=== PATIENT | female | born 1965 | race Caucasian/White ===

== ENCOUNTER 2016-05-08 07:02 | Emergency (ER) | payer OTHER ==
--- NOTE | 2016-05-08 07:44 | RAD ---
INDICATION: Right foot injury COMPARISON: None TECHNIQUE: AP, lateral, and oblique views were obtained. FINDINGS: There is no acute fracture. 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 There is a plantar calcaneal spur. There is lateral ankle swelling. IMPRESSION: NO ACUTE FRACTURE.
--- NOTE | 2016-05-08 07:44 | RAD ---
INDICATION: Right ankle injury COMPARISON: None TECHNIQUE: AP, lateral, and oblique views were obtained. FINDINGS: There is no acute fracture or dislocation. There is prominent lateral soft tissue swelling. Incidental note is made of heel spurs. IMPRESSION: NO ACUTE FRACTURE. LATERAL SOFT TISSUE SWELLING.
[2016-05-08 08:29] VITALS: BP 171/92
--- NOTE | 2016-05-08 08:30 | UC ---
Herlinda Rivera Matthew, [facility] MD on 05/08/16 at 0806 . Lower Extremity/Ankle HPI - HPI Summary HPI Summary: Nurse's Note: pt states 2-3 months she has had right ankle pain - pt denies any initial injury, though states she's been caring for her brother who is in a wheelchair, and when she wheels him up a ramp she's "tweaked" her ankle a few times. pt states it's getting progressively more swollen, and pain is not going away. Note: Temp 99.2, BP 163/93, Pulse Ox 98%, 3/10 in the right ankle with laterally and moderate bilateral ankle swelling, no alcohol, non-smoker, PMHx HTN, plantar fasciitis, and knee discomfort In Room Note: A 50 y/o female presents to [facility] with lateral right ankle pain for the past 2-3 months and 2 weeks ago she injuries her ankle again wheeling her brother up a ramp. Associated symptoms include swelling for the past 2 months, which is worse on the right as compared to the left. The patient has been ambulating with a limp for over a month. She denies any recent illness. Hx of sleep apnea and diverticulitis. The patient has a Hx of diverticulitis and was hospitalized multiple time. FHx of brain tumor and gout (father). - History of Current Complaint Chief Complaint: UCLowerExtremity Stated Complaint: ANKLE COMPLAINT Time Seen by Provider: 05/08/16 07:12 Hx Obtained From: Patient Hx Last Menstrual Period: 03/14/2009 ?: No Onset/Duration: Gradual Onset, Lasting Weeks, Still Present Severity Initially: Mild Severity Currently: Mild Pain Intensity: 3 Pain Scale Used: 0-10 Numeric - Allergies/Home Medications Allergies/Adverse Reactions: Allergies Allergy/AdvReac Type Severity Reaction Status Date / Time Ketamine Allergy Hives Verified 05/08/16 07:17 Lisinopril Allergy Swelling Verified 05/08/16 07:17 Of Face,Lips,& Throat Home Medications: Home Medications Omeprazole CAP* [Prilosec CAP* 20 MG] 20 mg PO DAILY PRN 05/08/16 [History Confirmed 05/08/16] PMH/Surg Hx/FS Hx/Imm Hx Endocrine History Of: Denies: Diabetes Cardiovascular History Of: Reports: Hypertension Denies: Pacemaker/ICD Respiratory History Of: Reports: Asthma GI/ History Of: Denies: Renal Disease - Surgical History Surgical History: Yes Surgery Procedure, Year, and Place: C SECTION X 4; TONSILECTOMY - Family History Family History: FHx of brain tumors and gout (father) - Social History Alcohol Use: None Substance Use Type: None Smoking Status (MU): Never Smoked Tobacco Review of Systems Constitutional: Negative Skin: Negative Eyes: Negative ENT: Negative Respiratory: Negative Cardiovascular: Negative Gastrointestinal: Negative Genitourinary: Negative Motor: Negative Neurovascular: Negative Musculoskeletal: Arthralgia - Right Ankle, Edema - Bilateral ankle swelling worse on the right as compared to the left Neurological: Negative Psychological: Negative All Other Systems Reviewed And Are Negative: Yes Physical Exam Triage Information Reviewed: Yes Appearance: Well-Appearing, No Pain Distress, Well-Nourished Vital Signs: Initial Vital Signs Temp 99.2 F 05/08/16 07:05 Pulse 80 05/08/16 07:05 Resp 16 05/08/16 07:05 BP 163/93 05/08/16 07:05 Pulse Ox 98 05/08/16 07:05 Vital Signs Reviewed: Yes Eyes: Positive: Conjunctiva Clear ENT: Positive: Hearing grossly normal, Pharynx normal, TMs normal Neck: Positive: Supple, Nontender Respiratory: Positive: Chest non-tender, Lungs clear, Normal breath sounds, No respiratory distress, No accessory muscle use Cardiovascular: Positive: RRR, No Murmur Musculoskeletal: Positive: Other: - MILD LATERAL SOFT TISSUE SWELLING OF THE LEFT ANKLE; Right knee no instability; RIGHT ANKLE: SWOLLEN BILATERALLY, LATERAL ASPECT IS MORE SWOLLEN THE MEDIAL ASPECT; Negative anterior drawer;; Achilles tendon intact; No tenderness over the base of the 5th metatarsal; No medial tenderness of the right ankle; No redness or inflammation; Calf muscle non tender bilaterally; TENDERNESS WITH INVERSION OF THE RIGHT FOOT Neurological: Positive: Muscle Tone Normal Psychological: Positive: Age Appropriate Behavior Skin Exam: Normal Skin: Negative: rashes Diagnostics - Radiology RT Ankle XR Xray Interpretation: No Acute Changes - IMPRESSION: NO ACUTE FRACTURE. LATERAL SOFT TISSUE SWELLING. Radiology Interpretation Completed By: Radiologist RT Foot XR Xray Interpretation: No Acute Changes - IMPRESSION: NO ACUTE FRACTURE. Radiology Interpretation Completed By: Radiologist Lower Extremity Course/Dx - Course Course Of Treatment: By Hx the patients father has gout. Patient is very concerned and requested a uric acid. I order the test. - Differential Dx/Diagnosis Differential Diagnosis/HQI/PQRI: Gout, Sprain Provider Diagnoses: Right Ankle Sprain Discharge - Discharge Plan Condition: Stable Disposition: HOME Patient Education Materials: Ankle Sprain (ED), Gout (ED) Referrals: No Primary Care Phys,NOPCP [Primary Care Provider] - Additional Instructions: WE DISCUSSED: You have an ankle sprain, on the right, on the outside. That's why it hurts when you turn your ankle in. Use gel cast; elevate whenever you can; warm moist heat in the morning; ice to area when it hurts. Re check at any time for increased pain or disability. Call the hospital for doctor referral. We have drawn your uric acid to check for gout. The result should be available on Tuesday. You can take ibuprofen and that will help if it is gout. Follow your blood pressure over the next few months to see if it's elevated above 120/80. The documentation as recorded by the Herlinda white Matthew accurately reflects the service I personally performed and the decisions made by me, Dave Dickson MD.
== END 2016-05-08 08:30 | disposition home or self-care (01) ==
LOC: UCEAST 07:02
DX: S93.401A Sprain of unspecified ligament of right ankle, initial encounter (principal); Z88.8 Allergy status to other drugs, medicaments and biological substances; X58.XXXA Exposure to other specified factors, initial encounter; Y93.9 Activity, unspecified
CPT/HCPCS: 36415; 84550; 99212; G0463